=== PATIENT | male | born 1985 | race African-American/Black ===

== ENCOUNTER 2020-08-21 20:43 | Emergency (ER) | payer SELFPAY ==
[~2020-08-21] VITALS: Ht 175.3 cm; Wt 114.1 kg
[2020-08-21 22:25] VITALS: BP 156/85; PULSE 84; TEMP 98.9
== END 2020-08-21 22:42 | disposition home or self-care (01) ==
LOC: COL.ER 20:43
DX: S39.012A Strain of muscle, fascia and tendon of lower back, initial encounter (principal); W01.10XA Fall on same level from slipping, tripping and stumbling with subsequent striking against unspecified object, initial encounter

== ENCOUNTER 2020-08-25 12:13 | Emergency (ER) | payer SELFPAY ==
[~2020-08-25] VITALS: Ht 175.3 cm; Wt 113.6 kg
[2020-08-25 12:20] VITALS: TEMP 98.5
[2020-08-25 13:19] LABS: COLLECTION METHOD CLEAN CATCH
[2020-08-25 13:26] LABS: PH 7 (5-8); SQUAMOUS EPITHELIAL None Seen /hpf; URINE APPEARANCE Clear; URINE BACTERIA None Seen /hpf; URINE BILIRUBIN Negative (NEGATIVE); URINE BLOOD Negative (NEGATIVE); URINE COLOR Yellow; URINE GLUCOSE Negative (NEGATIVE); URINE KETONE Negative (NEGATIVE); URINE LEUKOCYTE ESTERASE Negative (NEGATIVE); URINE NITRATE Negative (NEGATIVE); URINE PROTEIN(semi-quant) Negative (NEGATIVE); URINE RBC 0-2 /hpf; URINE UROBILINOGEN Negative (NEGATIVE)
[2020-08-25] MEDS ORDERED: MEDROL 4MG DOSPA4 MG PO (13:44)
[2020-08-25] MEDS ORDERED: PERCOCET 325 MG1 TA2 PO (13:50)
[2020-08-25] MEDS ORDERED: FLEXERIL 1010 MG/TAB PO (13:50)
[2020-08-25 14:18] VITALS: BP 135/101; PULSE 83
== END 2020-08-25 14:16 | disposition home or self-care (01) ==
LOC: COL.ER 12:13
PROVIDERS: Family Medicine
DX: S39.012A Strain of muscle, fascia and tendon of lower back, initial encounter (principal); M79.604 Pain in right leg; W19.XXXA Unspecified fall, initial encounter
CPT/HCPCS: J1100; J1170; J2550

== ENCOUNTER 2022-04-25 06:28 | Emergency (ER) | payer SELFPAY ==
[~2022-04-25] VITALS: Ht 175.3 cm; Wt 97.7 kg
[~2022-04-25 06:28] MED LIST: FLEXERIL 1010 MG/TAB PO; MEDROL 4MG DOSPA4 MG PO; PERCOCET 325 MG1 TA2 PO
[2022-04-25 06:35] VITALS: TEMP 98.8
[2022-04-25] MEDS ORDERED: ROBAXIN 50500 MG/TAB PO (08:04)
[2022-04-25] MEDS ORDERED: NAPROSYN500 MG PO (08:04)
[2022-04-25 08:26] VITALS: BP 148/100; PULSE 72
== END 2022-04-25 08:20 | disposition home or self-care (01) ==
LOC: COL.ER 06:28
DX: M62.838 Other muscle spasm (principal); Z28.310 Unvaccinated for COVID-19
CPT/HCPCS: J1885